=== PATIENT | female | born 1990 | race African-American/Black ===

== ENCOUNTER 2018-04-04 17:14 | Emergency (ER) | payer SELFPAY ==
[2018-04-04 17:27] VITALS: BP 120/80
--- NOTE | 2018-04-04 17:35 | ER Document Report ---
HPI - HPI Patient complains to provider of: cough Time Seen by Provider: 04/04/18 17:28 Onset: Other - 4 days Onset/Duration: Persistent Pain Level: 1 Context: Patient presents complaining of occasionally productive cough for the past 4 days. Patient denies any fever nausea or vomiting. Patient denies any sore throat or ear pain. Patient is here with her mother who has similar upper respiratory symptoms. Associated Symptoms: Productive cough. denies: Chest pain, Chills, Earache, Fever, Nausea, Vomiting, Rhinnorhea, Shortness of breath, Sore throat Exacerbated by: Denies Relieved by: Denies Similar symptoms previously: Yes Recently seen / treated by doctor: No - ROS ROS below otherwise negative: Yes Systems Reviewed and Negative: Yes All other systems reviewed and negative - CONSTITUTIONAL Constitutional: DENIES: Fever, Chills - EENT EENT: DENIES: Sore Throat, Congestion - NEURO Neurology: DENIES: Headache - CARDIOVASCULAR Cardiovascular: DENIES: Chest pain - RESPIRATORY Respiratory: REPORTS: Coughing - GASTROINTESTINAL Gastrointestinal: DENIES: Nausea, Patient vomiting - REPRODUCTIVE Reproductive: DENIES: : - MUSCULOSKELETAL Musculoskeletal: DENIES: Back Pain - DERM Skin Color: Normal Skin Problems: None Past Medical History - General Information source: Patient - Social History Smoking Status: Never Smoker Frequency of alcohol use: None Drug Abuse: None 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 IN LAST 30 DAYS: No - HEENT HEENT: Atraumatic, Normal ENT Exam, Normocephalic - NECK Neck: Normal Inspection, Supple. negative: Lymphadenopathy-Left, Lymphadenopathy-Right - RESPIRATORY Respiratory: Breath Sounds Normal, No Respiratory Distress, Chest Non-Tender. negative: Rales, Rhonchi, Wheezing - CARDIOVASCULAR Cardiovascular: Regular Rate, Regular Rhythm, No Murmur - GI/ABDOMEN Gastrointestinal: Abdomen Soft - BACK Back: Normal Inspection - MUSCULOSKELETAL/EXTREMETIES Musculoskeletal/Extremeties: MAEW, FROM - NEURO Level of Consciousness: Awake, Alert, Appropriate Motor/Sensory: No Motor Deficit - DERM Integumentary: Warm, Dry, No Rash Course - Re-evaluation Re-evalutation: 04/04/18 17:33 Respirations even and unlabored, no adventitious breath sounds. Patient nontoxic in appearance. Patient agreeable with deferring x-ray imaging at this time. Discussed worsening symptoms that she should return immediately for. - Vital Signs Vital signs: Temp Pulse Resp BP Pulse Ox 98.1 F 94 14 120/80 99 04/04/18 17:25 04/04/18 17:25 04/04/18 17:25 04/04/18 17:25 04/04/18 17:25 Discharge - Discharge Clinical Impression: Upper respiratory infection Qualifiers: URI type: unspecified URI Qualified Code(s): J06.9 - Acute upper respiratory infection, unspecified Condition: Stable Disposition: HOME, SELF-CARE Instructions: Upper Respiratory Illness ([facility]) Additional Instructions: Return immediately for any new or worsening symptoms Followup with your primary care provider, call tomorrow to make a followup appointment Prescriptions: Dextromethorphan Polistirex [Delsym] 60 mg PO Q12 PRN #120 ml PRN Reason: Naproxen [Naprosyn 250 Nmg Tablet] 1 tab PO BID #14 tablet Forms: Return to Work Referrals: [facility] [Provider Group] - Follow up as needed
== END 2018-04-04 17:59 | disposition home or self-care (01) ==
LOC: ER 17:14
DX: J06.9 Acute upper respiratory infection, unspecified (principal); R05 Cough
CPT/HCPCS: 99283